=== PATIENT | male | born 1990 | race African-American/Black ===

== ENCOUNTER 2018-08-14 09:03 | Emergency (ER) | payer MEDICAID ==
[~2018-08-14] VITALS: Ht 172.7 cm; Wt 5.0 kg
[~2018-08-14 09:03] MED LIST: NO MEDICATIONS REPORTED
[2018-08-14 09:15] VITALS: BP 114/73
[2018-08-14] MEDS ORDERED: FAMOTIDINE 20MG TABLET PO ONE (10:00)
[2018-08-14] MEDS ORDERED: DIPHENHYDRAMINE 25MG CAPSULE PO ONE (10:00)
[2018-08-14] MEDS ORDERED: DEXAMETHASONE 10 MG/ML VIAL IM ONE (10:00)
== END 2018-08-14 10:39 | disposition home or self-care (01) ==
LOC: ER 09:03
DX: T78.40XA Allergy, unspecified, initial encounter (principal); X58.XXXA Exposure to other specified factors, initial encounter; L30.9 Dermatitis, unspecified; B34.9 Viral infection, unspecified
CPT/HCPCS: 96372; 99283; J1100; Q0163

== ENCOUNTER 2019-07-14 12:01 | Emergency (ER) | payer MEDICAID ==
[~2019-07-14] VITALS: Ht 172.7 cm; Wt 77.0 kg
[2019-07-14] MEDS ORDERED: SODIUM CHLORIDE 0.9% 1,000 ML IV ONE (15:12)
[2019-07-14] MEDS ORDERED: FAMOTIDINE 20MG/2ML VIAL IV STA (15:12)
[2019-07-14 15:43] LABS: BASOPHILS % 0.3 % (0.0-2.0); HEMATOCRIT. 46.3 % (42.0-52.0); HEMOGLOBIN. 15.2 g/dL (14.0-18.0); LYMPHOCYTES % 23.5 % (20.0-50.0); MEAN CORPUSCULAR HEMOGLOBIN 29.5 pg (28.0-32.0); MEAN CORPUSCULAR VOLUME 89.9 fL (80.0-94.0); NEUTROPHILS % 63.2 % (40.0-76.0); PLATELET 192 x1000/uL (130-400); RED BLOOD CELL COUNT 5.15 mill/uL (4.7-6.1); RED CELL DISTRIBUTION WIDTH 13.9 % (11.6-14.6)
[2019-07-14 15:44] LABS: CHLORIDE 107 mEq/L (98-107)
[2019-07-14] MEDS ORDERED: MAGNESIUM/ALUMINUM HYDROXIDE/SIMETHICONE 30ML UDC PO STA (16:33)
[2019-07-14] MEDS ORDERED: VISCOUS LIDOCAINE 2% 15 ML UDC PO STA (16:33)
[2019-07-14 17:45] VITALS: BP 122/79
== END 2019-07-14 18:03 | disposition home or self-care (01) ==
LOC: ER 12:01
DX: R10.13 Epigastric pain (principal); R11.2 Nausea with vomiting, unspecified; R19.7 Diarrhea, unspecified; F12.10 Cannabis abuse, uncomplicated
CPT/HCPCS: 36415; 80053; 83690; 85025; 96361; 96374; 99283; J3490; J7030

== ENCOUNTER 2019-10-10 17:04 | Emergency (ER) | payer MEDICAID ==
[~2019-10-10] VITALS: Ht 175.3 cm; Wt 84.0 kg
[2019-10-10] MEDS ORDERED: AZITHROMYCIN 500 MG TABLET PO ONE (18:00)
[2019-10-10] MEDS ORDERED: IBUPROFEN 600MG TABLET PO ONE (18:00)
[2019-10-10] MEDS ORDERED: CEFTRIAXONE SODIUM 250 MG/VIAL IM ONE (18:00)
[2019-10-10 18:38] VITALS: BP 147/88
[2019-10-10 19:57] LABS: CLARITY URINE CLOUDY (CLEAR); COLOR URINE YELLOW (YELLOW); KETONES URINE NEGATIVE (NEGATIVE); LEUKOCYTE ESTERASE URINE 3+ (NEGATIVE); NITRITE URINE NEGATIVE (NEGATIVE); OCCULT BLOOD URINE NEGATIVE (NEGATIVE); PH URINE 6.5 (4.5-8.0); PROTEIN URINE NEGATIVE (NEGATIVE); SPECIFIC GRAVITY URINE 1.026 (1.005-1.030)
== END 2019-10-10 18:40 | disposition home or self-care (01) ==
LOC: ER 17:04
DX: R30.0 Dysuria (principal); F12.10 Cannabis abuse, uncomplicated; Z20.2 Contact with and (suspected) exposure to infections with a predominantly sexual mode of transmission
CPT/HCPCS: 81003; 87086; 96372; 99283; J0696

== ENCOUNTER 2020-07-21 09:59 | Emergency (ER) | payer MEDICAID ==
[~2020-07-21] VITALS: Ht 185.4 cm; Wt 78.0 kg
[2020-07-21] MEDS ORDERED: KETOROLAC 60MG/2ML VIAL IM STA (10:33)
[2020-07-21] MEDS ORDERED: LIDOCAINE HCL/EPINEPHRINE 1%-EPI 1:100,000 50 ML VIAL INFIL ONE (10:45)
[2020-07-21] MEDS ORDERED: BACITRACIN ZINC OINT UDPKT TOP ONE (10:45)
[2020-07-21] MEDS ORDERED: KETOROLAC 60MG/2ML VIAL IM SCH (10:50)
[2020-07-21] MEDS ORDERED: BACITRACIN ZINC OINT UDPKT TOP SCH (10:50)
[2020-07-21] MEDS ORDERED: LIDOCAINE HCL/EPINEPHRINE 1%-EPI 1:100,000 20 ML VIAL INFIL SCH (10:50)
[2020-07-21] MEDS ORDERED: SULF1TAB48 PO (11:58)
[2020-07-21] MEDS ORDERED: IBUP-2029 MT (11:58)
[2020-07-21] MEDS ORDERED: CEPH500C2 MT (11:58)
[2020-07-21 12:18] VITALS: BP 125/77
== END 2020-07-21 12:20 | disposition home or self-care (01) ==
LOC: ER 09:59
DX: L02.31 Cutaneous abscess of buttock (principal); F12.10 Cannabis abuse, uncomplicated
CPT/HCPCS: 10060; 96372; 99283; J1885; J3490; Z7610

== ENCOUNTER 2020-07-23 10:55 | Emergency (ER) | payer MEDICAID ==
[~2020-07-23] VITALS: Ht 175.3 cm; Wt 73.0 kg
[~2020-07-23 10:55] MED LIST changes: +CEPH500C2 MT; +IBUP-2029 MT; +SULF1TAB48 PO
[2020-07-23] MEDS ORDERED: BO1 TP (12:25)
[2020-07-23 12:30] VITALS: BP 105/60
== END 2020-07-23 12:30 | disposition home or self-care (01) ==
LOC: ER 10:55
DX: Z48.01 Encounter for change or removal of surgical wound dressing (principal); F12.10 Cannabis abuse, uncomplicated; Z79.899 Other long term (current) drug therapy
CPT/HCPCS: 99282

== ENCOUNTER 2021-09-02 10:20 | Emergency (ER) | payer MEDICAID ==
[~2021-09-02] VITALS: Ht 175.3 cm; Wt 79.0 kg
[~2021-09-02 10:20] MED LIST changes: +AMOX-424 MT; +BO1 TP; +CLIN300C12 MT; +HYDR-4001 MT; +IBUP-2030 MT; +ONDA4TAB11 PO; +P50 MT
[2021-09-02 10:24] VITALS: BP 113/64
== END 2021-09-02 11:09 | disposition home or self-care (01) ==
LOC: ER 10:20
DX: J36 Peritonsillar abscess (principal); F12.10 Cannabis abuse, uncomplicated; Z48.00 Encounter for change or removal of nonsurgical wound dressing; Z79.899 Other long term (current) drug therapy
CPT/HCPCS: 99281

== ENCOUNTER 2023-01-06 20:34 | Emergency (ER) | payer MEDICAID ==
[~2023-01-06] VITALS: Ht 175.3 cm; Wt 75.0 kg
[~2023-01-06 20:34] MED LIST changes: +CLIN-194 MT; -CLIN300C12 MT
[2023-01-06 21:48] VITALS: BP 114/78; PULSE 60; RESP 18; TEMP 97.7; O2SAT 100
[2023-01-06] MEDS ORDERED: PSEU120T56 MT (21:52)
== END 2023-01-06 22:02 | disposition home or self-care (01) ==
LOC: ER 20:34
DX: B34.9 Viral infection, unspecified (principal); F12.90 Cannabis use, unspecified, uncomplicated; J45.909 Unspecified asthma, uncomplicated; Z20.822 Contact with and (suspected) exposure to COVID-19
CPT/HCPCS: 99283; 87426; 82962; C9803

== ENCOUNTER 2023-01-11 11:38 | Emergency (ER) | payer MEDICAID ==
[~2023-01-11] VITALS: Ht 175.3 cm; Wt 77.0 kg
[~2023-01-11 11:38] MED LIST changes: +PSEU120T56 MT
[2023-01-11 11:55] VITALS: BP 122/70; PULSE 73; RESP 20; TEMP 98.2; O2SAT 98
[2023-01-11] MEDS ORDERED: ISOP30DR11 EACH EAR (12:47)
== END 2023-01-11 13:53 | disposition home or self-care (01) ==
LOC: ER 11:38
DX: Q18.1 Preauricular sinus and cyst (principal); H61.22 Impacted cerumen, left ear; J45.909 Unspecified asthma, uncomplicated; F12.10 Cannabis abuse, uncomplicated; Z79.899 Other long term (current) drug therapy
CPT/HCPCS: 99281; 99282

== ENCOUNTER 2023-06-16 23:46 | Emergency (ER) | payer MEDICAID ==
[~2023-06-16] VITALS: Ht 177.8 cm; Wt 83.0 kg
[~2023-06-16 23:46] MED LIST changes: +ISOP30DR11 EACH EAR
[2023-06-17 00:19] VITALS: BP 119/82; PULSE 88; RESP 18; TEMP 98.4; O2SAT 99
== END 2023-06-17 06:30 | disposition left against medical advice (07) ==
LOC: ER 23:46
DX: M54.9 Dorsalgia, unspecified (principal); Z53.21 Procedure and treatment not carried out due to patient leaving prior to being seen by health care provider
CPT/HCPCS: 99281; Z7610